=== PATIENT | male | born 1935 | race Caucasian/White ===

== ENCOUNTER 2018-12-31 18:32 | Emergency (ER) | payer MEDICARE, BC, OTHER ==
--- NOTE | 2018-12-31 19:56 | CRLCT ---
INDICATION: Trauma, laceration. TECHNIQUE: Head CT without contrast. COMPARISON: None FINDINGS: CSF spaces: Within normal limits for age. Brain parenchyma and extra-axial spaces: There are nonspecific low attenuation white matter changes consistent with chronic microvascular disease. No sign of mass, hemorrhage, or midline shift. Skull base and calvarium: The visualized paranasal sinuses and mastoid air cells demonstrate no acute or significant findings. The visualized orbits are grossly unremarkable. No skull fractures. Skin wenceslao are fixating a left parietal scalp laceration. IMPRESSION: Left parietal scalp laceration. No fracture or intracranial hemorrhage. Dictated by Ryan Suarez MD @ 12/31/2018 7:54:31 PM Please note that all CT scans at this facility use dose modulation, iterative reconstruction, and/or weight-based dosing when appropriate to reduce radiation dose to as low as reasonably achievable. Dictated by: Ryan Suarez MD @ 12/31/2018 19:54:48 (Electronically Signed)
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
== END 2018-12-31 20:35 | disposition home or self-care (01) ==
LOC: JP.ED 18:32
DX: S01.01XA Laceration without foreign body of scalp, initial encounter (principal); I10 Essential (primary) hypertension; E11.9 Type 2 diabetes mellitus without complications; E78.00 Pure hypercholesterolemia, unspecified; Z79.82 Long term (current) use of aspirin; Z79.899 Other long term (current) drug therapy; W22.8XXA Striking against or struck by other objects, initial encounter
CPT/HCPCS: 12002; 70450; 99283; 99283-25